=== PATIENT | male | born 1965 | race Caucasian/White ===

== ENCOUNTER 2016-12-27 12:35 | Observation (INO) | payer OTHER ==
--- NOTE | 2016-12-27 12:45 | ED ---
General Adult HPI - General Chief complaint: Chest Pain Stated complaint: Chest Pain Time Seen by Provider: 12/27/16 12:44 Source: patient, RN notes reviewed, old records reviewed Mode of arrival: wheelchair - History of Present Illness Initial comments: This is a 51-year-old male the ER for reevaluation chest pain. Patient has no history of chest pain or cardiac disease. Patient is a smoker. - Related Data Home Medications Medication Instructions Recorded Confirmed Minocycline HCl [Minocin] 50 mg PO Q12H 12/27/16 12/27/16 Multivitamins, Thera [Multivitamin 1 tab PO DAILY 12/27/16 12/27/16 (formulary)] buPROPion HCL [Wellbutrin XL] 150 mg PO DAILY 12/27/16 12/27/16 Allergies Allergy/AdvReac Type Severity Reaction Status Date / Time No Known Allergies Allergy Verified 12/27/16 13:56 Review of Systems ROS Statement: Those systems with pertinent positive or pertinent negative responses have been documented in the HPI. ROS Other: All systems not noted in ROS Statement are negative. Past Medical History Additional Past Medical History / Comment(s): BRAIN ANEURSIM 20 YEARS AGO History of Any Multi-Drug Resistant Organisms: None Reported Additional Past Surgical History / Comment(s): BRAIN SURGERY TO CORRECT ANEURISM Past Psychological History: No Psychological Hx Reported Smoking Status: Current every day smoker Past Alcohol Use History: None Reported Past Drug Use History: Marijuana General Exam General appearance: alert, in no apparent distress Head exam: Present: atraumatic, normocephalic, normal inspection Eye exam: Present: normal appearance, PERRL, EOMI. Absent: scleral icterus, conjunctival injection, periorbital swelling ENT exam: Present: normal exam, mucous membranes moist Neck exam: Present: normal inspection. Absent: tenderness, meningismus, lymphadenopathy Respiratory exam: Present: normal lung sounds bilaterally. Absent: respiratory distress, wheezes, rales, rhonchi, stridor Cardiovascular Exam: Present: regular rate, normal rhythm, normal heart sounds. Absent: systolic murmur, diastolic murmur, rubs, gallop, clicks GI/Abdominal exam: Present: soft, normal bowel sounds. Absent: distended, tenderness, guarding, rebound, rigid Extremities exam: Present: normal inspection, full ROM, normal capillary refill. Absent: tenderness, pedal edema, joint swelling, calf tenderness Back exam: Present: normal inspection Neurological exam: Present: alert, oriented X3, CN II-XII intact Psychiatric exam: Present: normal affect, normal mood Skin exam: Present: warm, dry, intact, normal color. Absent: rash Course Vital Signs 12/27/16 12/27/16 12/27/16 12:39 12:56 13:51 Temperature 97.7 F Pulse Rate 83 86 82 Respiratory 18 18 16 Rate Blood Pressure 127/56 131/64 128/67 O2 Sat by Pulse 98 99 96 Oximetry - Reevaluation(s) Reevaluation #1: 12/27/16 15:06 Patient is remains of right-sided chest pain EKG Findings - EKG Comments: EKG Findings:: EKG shows normal sinus rhythm rate of 81, CA 142, QRS 78, QTC 432 Medical Decision Making - Medical Decision Making 51 male ER for evaluation of chest pain. Anterior chest pain right-sided chest pain rating back. CT negative for PE or aortic disease, congestive family history as well as smoking and cholesterol, patient will be admitted for cardiac observation - Lab Data Result diagrams: 12/27/16 13:05 12/27/16 13:05 Lab Results 12/27/16 12/27/16 12/27/16 Range/Units 13:05 13:05 13:05 WBC 6.6 (3.8-10.6) k/uL RBC 5.42 (4.30-5.90) m/uL Hgb 17.7 H (13.0-17.5) gm/dL Hct 51.6 (39.0-53.0) % MCV 95.2 (80.0-100.0) fL MCH 32.7 (25.0-35.0) pg MCHC 34.4 (31.0-37.0) g/dL RDW 13.2 (11.5-15.5) % Plt Count 181 (150-450) k/uL Neutrophils % 66 % Lymphocytes % 22 % Monocytes % 6 % Eosinophils % 5 % Basophils % 0 % Neutrophils # 4.4 (1.3-7.7) k/uL Lymphocytes # 1.5 (1.0-4.8) k/uL Monocytes # 0.4 (0-1.0) k/uL Eosinophils # 0.3 (0-0.7) k/uL Basophils # 0.0 (0-0.2) k/uL PT (9.0-12.0) sec INR (<1.1) APTT (22.0-30.0) sec D-Dimer (<0.60) mg/L FEU Sodium 140 (137-145) mmol/L Potassium 4.0 (3.5-5.1) mmol/L Chloride 108 H (98-107) mmol/L Carbon Dioxide 24 (22-30) mmol/L Anion Gap 8 mmol/L BUN 22 H (9-20) mg/dL Creatinine 1.01 (0.66-1.25) mg/dL Est GFR (MDRD) Af Amer >60 (>60 ml/min/1.73 sqM) Est GFR (MDRD) Non-Af >60 (>60 ml/min/1.73 sqM) Glucose 160 H (74-99) mg/dL Calcium 9.4 (8.4-10.2) mg/dL Magnesium 2.1 (1.6-2.3) mg/dL Total Bilirubin 1.2 (0.2-1.3) mg/dL AST 38 (17-59) U/L ALT 52 (21-72) U/L Alkaline Phosphatase 64 (38-126) U/L Total Creatine Kinase 356 H (55-170) U/L CK-MB (CK-2) 2.6 H* (0.0-2.4) ng/mL CK-MB (CK-2) Rel Index 0.7 Troponin I <0.012 (0.000-0.034) ng/mL Total Protein 7.0 (6.3-8.2) g/dL Albumin 4.3 (3.5-5.0) g/dL Lipase 38 (23-300) U/L 12/27/16 12/27/16 Range/Units 13:05 13:05 WBC (3.8-10.6) k/uL RBC (4.30-5.90) m/uL Hgb (13.0-17.5) gm/dL Hct (39.0-53.0) % MCV (80.0-100.0) fL MCH (25.0-35.0) pg MCHC (31.0-37.0) g/dL RDW (11.5-15.5) % Plt Count (150-450) k/uL Neutrophils % % Lymphocytes % % Monocytes % % Eosinophils % % Basophils % % Neutrophils # (1.3-7.7) k/uL Lymphocytes # (1.0-4.8) k/uL Monocytes # (0-1.0) k/uL Eosinophils # (0-0.7) k/uL Basophils # (0-0.2) k/uL PT 11.4 (9.0-12.0) sec INR 1.1 (<1.1) APTT 26.0 (22.0-30.0) sec D-Dimer 0.20 (<0.60) mg/L FEU Sodium (137-145) mmol/L Potassium (3.5-5.1) mmol/L Chloride (98-107) mmol/L Carbon Dioxide (22-30) mmol/L Anion Gap mmol/L BUN (9-20) mg/dL Creatinine (0.66-1.25) mg/dL Est GFR (MDRD) Af Amer (>60 ml/min/1.73 sqM) Est GFR (MDRD) Non-Af (>60 ml/min/1.73 sqM) Glucose (74-99) mg/dL Calcium (8.4-10.2) mg/dL Magnesium (1.6-2.3) mg/dL Total Bilirubin (0.2-1.3) mg/dL AST (17-59) U/L ALT (21-72) U/L Alkaline Phosphatase (38-126) U/L Total Creatine Kinase (55-170) U/L CK-MB (CK-2) (0.0-2.4) ng/mL CK-MB (CK-2) Rel Index Troponin I (0.000-0.034) ng/mL Total Protein (6.3-8.2) g/dL Albumin (3.5-5.0) g/dL Lipase (23-300) U/L - Radiology Data Radiology results: report reviewed (Chest x-ray CT chest negative for PE), image reviewed Critical Care Time Critical Care Time: Yes Total Critical Care Time: 31 Disposition Clinical Impression: Chest pain Disposition: ADMITTED IP TO THIS [facility] Condition: Undetermined Instructions: Chest Pain (ED) Referrals: Rowena Bryant MD [Primary Care Provider] - 1-2 days
[2016-12-27 13:24] LABS: Basophils % (A) 0 %; CH 33.7; CHCM 35.5; Eosinophils # (A) 0.3 k/uL (0-0.7); Eosinophils % (A) 5 %; HCT 51.6 % (39.0-53.0); HDW 2.68; HGB 17.7 gm/dL (13.0-17.5); Luc # (Auto) 0.11; Luc % (Auto) 2; Lymphocytes # (A) 1.5 k/uL (1.0-4.8); Lymphocytes % (A) 22 %; MCH 32.7 pg (25.0-35.0); MCHC 34.4 g/dL (31.0-37.0); MCV 95.2 fL (80.0-100.0); Mean Platelet Volume 7.2; Monocytes # (A) 0.4 k/uL (0-1.0); Monocytes % (A) 6 %; Neutrophils # (A) 4.4 k/uL (1.3-7.7); Neutrophils % (A) 66 %; RBC 5.42 m/uL (4.30-5.90); RDW 13.2 % (11.5-15.5); WBC 6.6 k/uL (3.8-10.6); WBC (Perox) 6.96
[2016-12-27 13:30] LABS: ALT 52 U/L (21-72); AST 38 U/L (17-59); Alkaline Phosphatase 64 U/L (38-126); Anion Gap 8 mmol/L; Blood Urea Nitrogen 22 mg/dL (9-20); Calcium 9.4 mg/dL (8.4-10.2); Carbon Dioxide 24 mmol/L (22-30); Chloride 108 mmol/L (98-107); Glucose 160 mg/dL (74-99); Magnesium 2.1 mg/dL (1.6-2.3); Non-African American GFR(MDRD) >60 (>60 ml/min/1.73 sqM); Sodium 140 mmol/L (137-145); Total Bilirubin 1.2 mg/dL (0.2-1.3)
[2016-12-27 13:31] LABS: INR 1.1 (<1.1); Prothrombin Time 11.4 sec (9.0-12.0)
--- NOTE | 2016-12-27 13:36 | XR ---
EXAMINATION TYPE: XR chest 2V DATE OF EXAM: 12/27/2016 1:24 PM COMPARISON: NONE TECHNIQUE: PA and lateral views submitted. HISTORY: Chest pain FINDINGS: The lungs are clear and there is no pneumothorax, pleural effusion, or focal pneumonia. Hypertrophi c change of the spine. No overt failure or pneumothorax. IMPRESSION: 1. No acute process.
[2016-12-27 13:44] LABS: Creatine Kinase 356 U/L (55-170)
[2016-12-27 13:57] LABS: Creatine Kinase MB 2.6 ng/mL (0.0-2.4); Troponin I <0.012 ng/mL (0.000-0.034)
[2016-12-27] MEDS ORDERED: RX INFO: IV CONTRAST WAS GIVEN 1 EACH MISC MISCELLANE PRN (14:04)
--- NOTE | 2016-12-27 14:48 | CT ---
EXAMINATION TYPE: CT angio chest DATE OF EXAM: 12/27/2016 2:42 PM COMPARISON: NONE HISTORY: chest pain X 1 week, hx of brain aneurysm years ago CT DLP: 564.7 mGycm. Automated Exposure Control for Dose Reduction was Utilized. CONTRAST: CTA scan of the thorax is performed with IV Contrast, patient injected with 75cc mL of Omnipaque 350, pulmonary embolism protocol. MIP Images are created on CT scanner and reviewed. FINDINGS: LUNGS: Mild underlying emphysematous change is present. There is linear atelectasis or scarring poste riorly in both lung bases. There is no concerning noncalcified parenchymal nodule or mass. There is 6 x 2 mm calcified nodule laterally left lower lung on axial image 94. No pleural effusion or pneumoth orax is seen bilaterally. MEDIASTINUM: There is satisfactory enhancement of the pulmonary artery and its branches, there is no CT evidence for pulmonary embolism. There are no greater than 1 cm hilar or mediastinal lymph nodes. No cardiomegaly or pericardial effusion is seen. Main pulmonary artery measures 3.0 cm diameter on axial image 69. Adjacent ascending aorta measures 3.3 cm in diameter. OTHER: Juxtarenal IVC filter is partially imaged. Liver is low dense consistent with diffuse fatty in filtration. IMPRESSION: 1. No CT evidence for pulmonary embolism. 2. Mild emphysematous change without acute pulmonary process.
[2016-12-27] MEDS ORDERED: HEPARIN SODIUM,PORCINE 5,000 UNIT/ML 1 ML VIAL IV ONE (15:04)
[2016-12-27] MEDS ORDERED: NITROGLYCERIN SL TABS 0.4 MG TAB SUBLINGUAL PRN (15:04)
[2016-12-27] MEDS ORDERED: HEPARIN SODIUM,PORCINE 5,000 UNIT/ML 1 ML VIAL IV PRN (15:04)
[2016-12-27] MEDS ORDERED: ASPIRIN 81 MG CHEW PO STA (15:04)
[2016-12-27] MEDS ORDERED: HEPARIN SODIUM,PORCINE/D5W PMX 25,000 UNIT in DEXTROSE/WATER 1 500ML.BAG IV SCH (15:15)
[2016-12-27] MEDS: SODIUM CHLORIDE 0.9% 1,000 ML IV SCH (15:30)
--- NOTE | 2016-12-27 20:32 | CONS ---
DATE OF CONSULTATION: Maximino Lobo is a 51-year-old male patient who presented with right-sided chest discomfort which is a sharp pain in the right side. This pain is constant and has been there for about 4 days but it gets worse periodically when he moves his arm in a particular direction. He had slight chest wall tenderness over the ribs but with certain normal movements, I would reduce the pain. There is no back pain and no tender spots in his back. He underwent a CT of the chest, which did not show any pulmonary embolism. The d-dimer are normal. He denies any hypertension, diabetes, he states his lipid panel is within normal limits but I do not have one with me at this time and I will order a lipid panel. SOCIAL HISTORY: He continues to smoke 1 pack of cigarettes a day. ALLERGIES: No known drug allergies. MEDICATIONS: 1. Minocycline. 2. Multivitamins. 3. Wellbutrin. PAST MEDICAL HISTORY: He has had a brain aneurysms surgery 20 years back. In the past he used to use marijuana. REVIEW OF SYSTEMS: No fever, chills, rigors. No cough or expectoration. No nausea, vomiting or diarrhea. No hematuria, dysuria. No strokes or seizures. No skin lesions or musculoskeletal complaints. On examination, his blood pressure is 113/76 mm of mercury, respirations are normal, temperature is normal 97.7 degrees Fahrenheit. Head and neck examination is normal. No JVD, thyromegaly, or carotid bruits. Heart sounds S1, S2 are normal. No murmurs or gallops. LUNGS: Clear to auscultation. EXTREMITIES: Warm. No edema. IMPRESSION: Atypical chest discomfort for 4 days. LABS: Reviewed. White count is normal. Hemoglobin is 17.7. Electrolytes are normal. Glucose 160. Total CPK is 356, MB 2.6. Troponin is normal. Lipase is normal. Kidney function is normal. IMPRESSION: 1. A 51-year-old male patient of Dr. Auguste who presents with atypical chest discomfort. 2. Current smoker 1 pack of cigarettes a day. 3. Elevated glucose level, hemoglobin A1c pending. 4. Lipid panel pending. 5. Elevated CPK but normal Troponins, and normal CT, no evidence for pulmonary embolism. His EKG is normal. First EKG is normal. 6. Chronic obstructive pulmonary disease. CT of his chest showed emphysema with scarring in both bases. A calcified nodule is noted in the left lower lung. Suggest: Three sets of cardiac enzymes and repeat EKG tomorrow. If enzymes are normal, heparin and nitro paste will be discontinued.
[2016-12-27 21:16] LABS: Creatine Kinase 287 U/L (55-170)
[2016-12-27 21:29] LABS: Creatine Kinase MB 1.8 ng/mL (0.0-2.4); Troponin I <0.012 ng/mL (0.000-0.034)
[2016-12-27] MEDS: MINOCYCLINE 50 MG CAP PO SCH (23:43)
[2016-12-28 02:48] LABS: Mean Platelet Volume 7.4
[2016-12-28 03:00] LABS: Cholesterol 144 mg/dL (<200); HDL Cholesterol 35 mg/dL (40-60); Triglycerides 184 mg/dL (<150)
[2016-12-28 05:26] LABS: Troponin I <0.012 ng/mL (0.000-0.034)
[2016-12-28 05:32] LABS: Creatine Kinase 249 U/L (55-170)
[2016-12-28] MEDS: SODIUM CHLORIDE 0.9% 1,000 ML IV SCH (06:22)
[2016-12-28] MEDS ORDERED: buPROPion XL 150 MG TAB.ER.24H PO SCH (09:00)
[2016-12-28] MEDS ORDERED: ATORVASTATIN 80 MG TAB PO SCH (09:00)
[2016-12-28] MEDS ORDERED: ASPIRIN 325 MG TAB PO SCH (09:00)
[2016-12-28 09:14] VITALS: BP 129/74; PULSE 79; RESP 18; TEMP 97.9
[2016-12-28] MEDS: MINOCYCLINE 50 MG CAP PO SCH (09:47)
[2016-12-28] MEDS ORDERED: MULTIVITAMINS, THERA 1 EACH TAB PO SCH (12:00)
--- NOTE | 2016-12-28 12:16 | P.HPIM ---
History of Present Illness Patient left the hospital AGAINST MEDICAL ADVICE prior to my evaluation Past Medical History Past Medical History: Memory Impairment, Sleep Apnea/CPAP/BIPAP Additional Past Medical History / Comment(s): BRAIN ANEURYSM 1998, USES A CPAP MACHINE, PAST SEIZURES ATER BRAIN SX PT STATED NONE IN 14 YEARS.SHORT TERM MEMORY PROBLEMS. History of Any Multi-Drug Resistant Organisms: None Reported Additional Past Surgical History / Comment(s): BRAIN SURGERY TO CORRECT ANEURISM , COLONOSCOPY Past Anesthesia/Blood Transfusion Reactions: No Reported Reaction Past Psychological History: No Psychological Hx Reported Additional Psychological History / Comment(s): PT LIVES BY HIMDELF. DOES'NT DRIVE, RIDES A BIKE OR GETS A RIDE FROM BROTHER. INDEPENDNT WHEN UP. HAS A CPAP MACHINE AT HOME. Smoking Status: Current every day smoker Past Alcohol Use History: None Reported Additional Past Alcohol Use History / Comment(s): >30 YEARS 1PPD Past Drug Use History: Marijuana - Past Family History Father Family Medical History: Unable to Obtain Mother Family Medical History: Unable to Obtain Medications and Allergies Home Medications Medication Instructions Recorded Confirmed Type Minocycline HCl [Minocin] 50 mg PO Q12H 12/27/16 12/27/16 History Multivitamins, Thera [Multivitamin 1 tab PO DAILY 12/27/16 12/27/16 History (formulary)] buPROPion HCL [Wellbutrin XL] 150 mg PO DAILY 12/27/16 12/27/16 History Allergies Allergy/AdvReac Type Severity Reaction Status Date / Time No Known Allergies Allergy Verified 12/27/16 13:56 Physical Exam Vitals: Vital Signs Temp Pulse Pulse Resp BP BP BP 12/28/16 08:00 97.9 F 79 18 129/74 12/28/16 04:00 97.6 F 82 16 105/82 12/27/16 23:49 97.9 F 84 18 117/78 12/27/16 19:33 98.1 F 74 16 126/69 12/27/16 16:25 12/27/16 16:00 97.7 F 75 18 130/76 12/27/16 15:46 97.0 F L 77 18 111/72 12/27/16 13:51 82 16 128/67 12/27/16 12:56 86 18 131/64 12/27/16 12:39 97.7 F 83 18 127/56 Pulse Ox 05/16/17 08:00 95 12/28/16 04:00 97 12/27/16 23:49 96 12/27/16 19:33 99 12/27/16 16:25 98 12/27/16 16:00 98 12/27/16 15:46 98 12/27/16 13:51 96 12/27/16 12:56 99 12/27/16 12:39 98 Intake and Output 12/27/16 12/28/16 12/28/16 22:59 06:59 14:59 Intake Total 240 Balance 240 Intake: Oral 240 Other: Voiding Method Toilet Toilet Toilet Weight 113.2 kg Results CBC & Chem 7: 12/28/16 02:23 12/27/16 13:05 Labs: Abnormal Lab Results - Last 24 Hours (Table) 12/27/16 12/27/16 12/27/16 Range/Units 13:05 13:05 13:05 Hgb 17.7 H (13.0-17.5) gm/dL Chloride 108 H (98-107) mmol/L BUN 22 H (9-20) mg/dL Glucose 160 H (74-99) mg/dL Total Creatine Kinase 356 H (55-170) U/L CK-MB (CK-2) 2.6 H* (0.0-2.4) ng/mL Triglycerides (<150) mg/dL HDL Cholesterol (40-60) mg/dL 12/27/16 12/28/16 12/28/16 Range/Units 20:14 02:23 02:23 Hgb (13.0-17.5) gm/dL Chloride (98-107) mmol/L BUN (9-20) mg/dL Glucose (74-99) mg/dL Total Creatine Kinase 287 H 249 H (55-170) U/L CK-MB (CK-2) (0.0-2.4) ng/mL Triglycerides 184 H (<150) mg/dL HDL Cholesterol 35 L (40-60) mg/dL Thrombosis Risk Factor Assmnt - Choose All That Apply Any of the Below Risk Factors Present?: Yes Each Factor Represents 1 point: Age 41-60 years, Obesity (BMI >25) Other Risk Factors: No Other congenital or acquired thrombophilia - If yes, enter type in comment: No Thrombosis Risk Factor Assessment Total Risk Factor Score: 2 Thrombosis Risk Factor Assessment Level: Low Risk Assessment and Plan Plan: Patient left the hospital AGAINST MEDICAL ADVICE prior to my evaluation
--- NOTE | 2016-12-28 12:17 | P.DS ---
Providers Date of admission: 12/27/16 15:04 Attending physician: Immanuel Arita Consults: 12/27/16 15:04 Consult Physician Urgent Consulting Provider: Padmaja Ivy Consult Reason/Comments: cp Do you want consulting provider notified?: Yes Primary care physician: Rowena Bryant Hospital Course: Patient left the hospital AGAINST MEDICAL ADVICE prior to my evaluation Patient Condition at Discharge: Undetermined Plan - Discharge Summary Discharge Medication List Minocycline HCl [Minocin] 50 mg PO Q12H 12/27/16 [History] Multivitamins, Thera [Multivitamin (formulary)] 1 tab PO DAILY 12/27/16 [History ] buPROPion HCL [Wellbutrin XL] 150 mg PO DAILY 12/27/16 [History] Follow up Appointment(s)/Referral(s): Rowena Bryant MD [Primary Care Provider] - 1-2 days Patient Instructions/Handouts: Chest Pain (ED) Discharge Disposition: Left Against Medical Advice
== END 2016-12-28 09:27 | disposition left against medical advice (07) ==
LOC: EC 12:35 → 3OBS 15:04
PROVIDERS: ADMIT Internal Medicine; ATTEND Internal Medicine
DX: R07.89 Other chest pain (principal); F17.210 Nicotine dependence, cigarettes, uncomplicated; R73.01 Impaired fasting glucose; R74.8 Abnormal levels of other serum enzymes; J44.9 Chronic obstructive pulmonary disease, unspecified; Z79.899 Other long term (current) drug therapy; Z79.2 Long term (current) use of antibiotics; G47.30 Sleep apnea, unspecified; Z99.89 Dependence on other enabling machines and devices; R41.3 Other amnesia
CPT/HCPCS: 96365; 96366 ×2; 96376; 99291; 36415; 93005; 85379; 80061; 80053; 82550 ×2; 82553 ×2; 83690; 83735; 84484 ×2; 85025; 85049; 85610; 85730 ×2; 71020; 71275; G0378 ×2; J1644 ×2; Q9967

== ENCOUNTER 2018-10-30 08:33 | Day surgery (SDC) | payer OTHER ==
[2018-10-27 09:03] VITALS: BMI 40.3
[~2018-10-30 08:33] MED LIST: HEPARIN SODIUM,PORCINE 5,000 UNIT/ML 1 ML VIAL SQ ONE; HYDROmorphone 0.5 MG/0.5 ML SYRINGE IVP PRN; LACTATED RINGERS 1,000 ML IV SCH; MORPHINE SULFATE 4 MG/ML SYRINGE IV PRN; Pre Op ABX Message 1 EACH MISC MISCELLANE ONE
[2018-10-30] MEDS ORDERED: LIDOCAINE 1% 20 ML VIAL (10MG/ML) FOR IV START INTRADERMA ONE (09:56)
[2018-10-30] MEDS ORDERED: DEXAMETHASONE SOD PHOS (MDV) 100 MG/10 ML VIAL IVP ONE (09:58)
[2018-10-30] MEDS ORDERED: ONDANSETRON 4 MG/2 ML VIAL IVP ONE (09:58)
--- NOTE | 2018-10-30 10:11 | P.GSHP ---
History of Present Illness H&P Date: 10/30/18 Chief Complaint: Skin lesion on scrotum This is a 53-year-old male who has developed a chronically inflamed skin lesion on his scrotum. He presents today for excision. Past Medical History Past Medical History: Memory Impairment, Sleep Apnea/CPAP/BIPAP Additional Past Medical History / Comment(s): BRAIN ANEURYSM 1998, USES A CPAP MACHINE, PAST SEIZURES ATER BRAIN SX PT STATED NONE IN 14 YEARS.SHORT TERM ME ALEXANDRU PROBLEMS. History of Any Multi-Drug Resistant Organisms: None Reported Additional Past Surgical History / Comment(s): BRAIN SURGERY TO CORRECT AN EURISM, COLONOSCOPY Past Anesthesia/Blood Transfusion Reactions: No Reported Reaction Smoking Status: Current every day smoker - Past Family History Father Family Medical History: Unable to Obtain Mother Family Medical History: Unable to Obtain Medications and Allergies Home Medications Medication Instructions Recorded Confirmed Type Minocycline HCl [Minocin] 50 mg PO Q12H 12/27/16 10/30/18 History Multivitamins, Thera [Multivitamin 1 tab PO DAILY 10/27/18 10/27/18 History (formulary)] [place]-3 Fatty Acids/Fish Oil [Fish 1 each PO DAILY 10/27/18 10/27/18 History Oil 1,000 mg Softgel] Allergies Allergy/AdvReac Type Severity Reaction Status Date / Time No Known Allergies Allergy Verified 10/27/18 08:58 Surgical - Exam Vital Signs Temp Pulse Resp BP Pulse Ox 98.2 F 85 18 118/71 97 10/30/18 09:45 10/30/18 09:45 10/30/18 09:45 10/30/18 09:45 10/30/18 09:45 - General well developed, well nourished, no distress - Eyes PERRL - ENT normal pinna - Neck no masses - Respiratory normal expansion - Cardiovascular Rhythm: regular - Abdomen Abdomen: soft, non tender - Integumentary 5 cm chronically inflamed skin lesion of the posterior scrotum. Assessment and Plan Assessment: Chronically inflamed posterior scrotum skin lesion. We'll perform excision.
[2018-10-30] MEDS ORDERED: HYDROmorphone (PF) 1 MG/ML ONE (10:28)
[2018-10-30] MEDS ORDERED: diphenhydrAMINE 50 MG/ML 1 ML VIAL ONE (10:28)
[2018-10-30] MEDS ORDERED: fentaNYL (PF) 50 MCG/ML 2 ML AMP ONE (10:28)
[2018-10-30] MEDS ORDERED: PROPOFOL 10 MG/ML 20 ML VIAL IV ONE (10:28)
[2018-10-30] MEDS ORDERED: ROCURONIUM BROMIDE 10 MG/ML 10 ML VIAL IV ONE (10:28)
[2018-10-30] MEDS ORDERED: KETOROLAC 30 MG/ML 1 ML VIAL ONE (10:28)
[2018-10-30] MEDS ORDERED: LIDOCAINE 1% INJ 10MG/ML (20 ML MDV) ONE (10:28)
[2018-10-30] MEDS ORDERED: MIDAZOLAM 2 MG/2 ML VIAL ONE (10:28)
[2018-10-30] MEDS ORDERED: SUCCINYLCHOLINE CHLORIDE 100 MG/5 ML SYR IV ONE (10:28)
[2018-10-30] MEDS ORDERED: ceFAZolin 1,000 MG VIAL IVPB ONE (10:53)
[2018-10-30] MEDS ORDERED: LACTATED RINGERS 1,000 ML IV ONE (10:57)
[2018-10-30 11:26] VITALS: TEMP 98.6
--- NOTE | 2018-10-30 12:06 | P.OP ---
Date of Procedure: 10/30/18 Preoperative Diagnosis: Chronically inflamed scrotal skin lesion Postoperative Diagnosis: Chronically inflamed scrotal skin lesion Procedure(s) Performed: Excision of chronically inflamed scrotal skin lesion Anesthesia: EDUARDO Surgeon: Gee Huang Estimated Blood Loss (ml): 10 Pathology: other (4 cm scrotal skin lesion) Condition: stable Disposition: PACU Description of Procedure: The patient's placed on the operative table in supine position. He received general anesthesia. His scrotum was prepped and draped usual sterile fashion. The patient had a 4 x 2 cm chronically inflamed scrotal skin lesion on the posterior wall the scrotum. Using a 15 blade the skin was incised and then using electrocautery the skin lesion was dissected free from the scrotum. The wound significant disease. Scope was then closed with interrupted 3-0 Monocryl suture. Dermabond was applied. Patient top she will was sent to recovery in stable condition.
[2018-10-30 12:23] VITALS: RESP 16
[2018-10-30 13:01] VITALS: BP 121/79; PULSE 83
== END 2018-10-30 13:15 | disposition home or self-care (01) ==
LOC: OR 08:33
PROVIDERS: ATTEND Surgery
DX: L72.0 Epidermal cyst (principal); F17.200 Nicotine dependence, unspecified, uncomplicated; G47.30 Sleep apnea, unspecified; Z99.89 Dependence on other enabling machines and devices; Z79.899 Other long term (current) drug therapy; R41.3 Other amnesia
CPT/HCPCS: 88304; 11426; J2250; J1200; J1644; J2405; J0690; J2001; J3010; J1885; J1170; J1100; J0330; J2704

== ENCOUNTER → 2018-12-19 | Outpatient (CLI) | payer OTHER ==
--- NOTE | 2018-12-19 19:43 | PN ---
PROGRESS NOTE Maximion is 53, coming to see me for a followup. The patient is known to have obstructive sleep apnea treated many years back. The patient has got a new Resmet CPAP unit and the patient is coming to see me for a compliancy check. This was offered to him through his primary care physician. This is a regular CPAP unit which does not have any automatic capacity. The patient has been utilizing his CPAP. However, at times this machine has been quitting on him. It is very much likely the patient is leaking excessively around the mask and for that reason, he is having these episodic machine failures. I checked his compliance data. Based on the recorded data, the patient has been utilizing his machine every night. He has been averaging around 8.3 hours of CPAP use per night with a leak factor of 83 L per minute. His AHI is down to 0.1 while on treatment. He is using a Mirage Quattro full-face mask, older generation. He states that he is not snoring while on treatment. He is not waking up for any choking or gasping sensation. He goes to bed around 11 p.m., wakes up 7:00 am in the morning and he keeps a regular schedule. No naps during the day. He prefers to sleep on his side. He claims that the treatment is helping him with his symptoms of obstructive sleep apnea with the exception of the leaks and the occasionally machine failure as reported. REVIEW OF SYSTEMS: Fourteen-point review of system was done. Positive findings are mentioned above in the history of present illness. No insomnia. No nocturia. No grinding of the teeth. No sleepwalking or dry mouth. No anxiety or panic attacks. No palpitations. No heartburn. No restlessness in lower extremities. No sleepwalking or sleep talking. No anxiety. No claustrophobia. No sexual dysfunction. No depression. No history of any memory or concentration. PHYSICAL EXAMINATION: BP is 137/87, pulse 104, respirations 18, temperature 97.4, saturation 95% on room air. Height is 5 feet 7 inches, weight is 264. GENERAL APPEARANCE: Calm, comfortable. Head is atraumatic, normocephalic. NECK: Supple. Mallampati class 4. There is no goiter or neck masses. LUNGS: Clear to auscultation. HEART: Sounds regular rate and rhythm. Normal S1, S2. No S3. No murmurs. ABDOMEN: Soft, nontender. No organomegaly. EXTREMITIES: No edema. No cyanosis or clubbing. NEUROLOGIC: Alert and oriented x3. No focal neurological deficits. IMPRESSION: 1. Obstructive sleep apnea currently on CPAP with at a pressure of 15 cm of water. The patient is coming in for a compliancy check as the patient has obtained a new CPAP unit. 2. Excessive mask leaks around the Mirage Quattro full face mask. 3. Occasional machine failure. PLAN: I think the machine is quitting because of excessive leaks. I will eliminate the Smart start feature. I offered him an AirFit F20 full face mask and the pressure will be kept with a pressure of 15 cm of water. The patient will be encouraged to continue using the CPAP and see me back in 4-6 weeks' time for re-evaluation. We will make further adjustments based on his overall clinical response and compliance. MMKELLYL / ALEJANDRON: [id number] /
== END ==
LOC: SLEEP 15:27
PROVIDERS: ATTEND Internal Medicine Critical Care Medicine
DX: G47.33 Obstructive sleep apnea (adult) (pediatric) (principal); Z99.89 Dependence on other enabling machines and devices
CPT/HCPCS: 99211

== ENCOUNTER → 2019-01-30 | Outpatient (CLI) | payer OTHER ==
--- NOTE | 2019-01-30 16:55 | PN ---
PROGRESS NOTE 53-year-old male patient coming in for sleep apnea evaluation. During his last visit, I gave the patient an AirFit F20 full face mask, medium size and this is supposed to improve his compliance and tolerability. He is on CPAP pressure of 15. Overall he is doing better. His compliance data reflects that. The patient has been averaging 8.3 hours of CPAP use per night. Leak is 7 L/minute. AHI is down to 0.3. Overall he is feeling better. He is benefitting from treatment. He is awake and refreshed and alert during the day and he has no specific complaints. REVIEW OF SYSTEMS: Fourteen-point review of system was done. Hypersomnia and sleepiness were recovered and the patient's Moosic score was down to 1. No episodes of falling asleep while driving or performing routine day-to-day activities. No other complaints otherwise. PHYSICAL EXAMINATION: BP is 109/70, pulse 102, respirations 16, temperature 98.1. Saturation 96% on room air. Height 5 feet 7 inches, weight is 265. BMI is 41. GENERAL APPEARANCE: Calm, comfortable. Head is atraumatic, normocephalic. NECK: Supple. No JVD. No goiter. No neck masses. LUNGS: Diminished. Otherwise clear. HEART: Sounds regular rate and rhythm. Normal S1, S2. No murmurs. ABDOMEN: Soft, nontender. No organomegaly. EXTREMITIES: No edema. No cyanosis or clubbing. NEUROLOGICALLY: She is alert and oriented x3. There is no focal neurological deficits. PSYCHIATRICALLY: Negative for anxiety or depression. IMPRESSION: 1. Symptomatic obstructive sleep apnea currently on CPAP pressure of 15 cm of water. 2. Hypersomnia, improved, Moosic score is down to 1. 3. Obesity, BMI of 41. PLAN: 1. Weight loss. 2. Continue CPAP therapy. The CPAP pressure will be lowered down to 14. 3. Refill the patient's AirFit F20 full face mask. 4. See me back in a year's time in follow up. 5. Treatment is successful for now. MMODL / IJN: [id number] /
== END | disposition home or self-care (01) ==
LOC: SLEEP 15:32
PROVIDERS: ATTEND Internal Medicine Critical Care Medicine
DX: G47.33 Obstructive sleep apnea (adult) (pediatric) (principal); E66.9 Obesity, unspecified; Z68.41 Body mass index [BMI] 40.0-44.9, adult; Z99.89 Dependence on other enabling machines and devices

== ENCOUNTER 2020-02-12 13:40 | Emergency (ER) | payer OTHER ==
[2020-02-12 13:44] VITALS: RESP 18; TEMP 98.2
[2020-02-12] MEDS ORDERED: LIDOCAINE 1% INJ 10MG/ML (20 ML MDV) SQ ONE (13:56)
[2020-02-12] MEDS ORDERED: DIPH,PERTUS(ACELL)TETVAC-LF 0.5 ML VIAL IM ONE (13:56)
--- NOTE | 2020-02-12 14:54 | CT ---
EXAMINATION TYPE: CT cervical spine wo con DATE OF EXAM: 02/12/2020 COMPARISON: None HISTORY: 54-year-old male Fall, neck pain TECHNIQUE: Contiguous axial scanning of the cervical spine without IV contrast. Coronal and sagittal reconstructions performed. CT DLP: 469.2 mGycm Automated exposure control for dose reduction was used. FINDINGS: No greater cervical junction and probably, predental space widening, or prevertebral soft tissue swel ling. Moderate anterior and plate spondylosis mid cervical spine. Alignment is maintained. No acute fracture of the cervical spine. Extensive artifact from the patient's shoulders limits assessment of the spinal canal from C3-C4 and below. Scattered facet and uncovertebral joint arthropathy. Changes result in mild right-sided neural forami nal narrowing at C4-C5 and C5-C6. IMPRESSION: MILD SPONDYLITIC CHANGE MID TO LOWER CERVICAL SPINE. NO ACUTE FRACTURE OR MALALIGNMENT.
--- NOTE | 2020-02-12 14:57 | XR ---
EXAMINATION TYPE: XR lumbar spine 2 or 3V DATE OF EXAM: 02/12/2020 CLINICAL HISTORY: pain TECHNIQUE: Three views of the lumbar spine are submitted. COMPARISON: None. FINDINGS: There are 5 lumbar type vertebral bodies identified. The lumbar spine shows satisfactory alignment w ithout evidence of acute fracture or dislocation. Vertebral body heights are within normal limits. Mild degenerative disc space narrowing noted with mild spondylosis. The overlying soft tissue appear s unremarkable. IMPRESSION: No acute fracture or dislocation is seen in the lumbar spine. ICD 10 NO FRACTURE, INITIAL EVALUATION
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
[2020-02-12 16:33] VITALS: BP 142/78; PULSE 95
== END 2020-02-12 16:33 | disposition home or self-care (01) ==
LOC: EC 13:40
DX: S11.91XA Laceration without foreign body of unspecified part of neck, initial encounter (principal); M54.5 Low back pain; G47.30 Sleep apnea, unspecified; F17.200 Nicotine dependence, unspecified, uncomplicated; Z23 Encounter for immunization; Z99.89 Dependence on other enabling machines and devices; W18.09XA Striking against other object with subsequent fall, initial encounter
CPT/HCPCS: 72100; 72125; 90715; 99283; 12002; 90471; J2001

== ENCOUNTER → 2021-03-06 | Day surgery (SDC) | payer OTHER ==
[2021-03-04 13:38] VITALS: BMI 38.0
[~2021-03-06] MED LIST changes: -HEPARIN SODIUM,PORCINE 5,000 UNIT/ML 1 ML VIAL SQ ONE; -HYDROmorphone 0.5 MG/0.5 ML SYRINGE IVP PRN; +LACTATED RINGERS 1,000 ML IV ONE; +MIDAZOLAM 2 MG/2 ML VIAL ONE; -MORPHINE SULFATE 4 MG/ML SYRINGE IV PRN; +PROPOFOL 10 MG/ML 20 ML VIAL IV ONE; -Pre Op ABX Message 1 EACH MISC MISCELLANE ONE; +fentaNYL (PF) 50 MCG/ML 2 ML AMP ONE
[2021-03-06 07:35] VITALS: TEMP 97.8
[2021-03-06 07:44] LABS: Glucose,Whole Blood 148 mg/dL (75-99)
--- NOTE | 2021-03-06 08:50 | P.PCN ---
Date of Procedure: 03/06/21 Procedure(s) Performed: BRIEF HISTORY: Patient is a 55-year-old pleasant male scheduled for an elective colonoscopy as a part of evaluation of prior history of colon polyps. His last coloscopy was [address] Pozo. PROCEDURE PERFORMED: Colonoscopy with biopsy. PREOPERATIVE DIAGNOSIS: History of colon polyps. IV sedation per Anesthesia. PROCEDURE: After informed consent was obtained, the patient, was brought into the endoscopy unit. IV sedation was administered by Anesthesia under continuous monitoring. Digital rectal examination was normal. Initially the Olympus CF-160 flexible video colonoscope was then inserted in the rectum, gradually advanced into the cecum without any difficulty. Careful examination was performed as the scope was gradually being withdrawn. Ileocecal valve and the appendiceal orifice were visualized and appeared normal. Prep was excellent. Mucosa of the cecum, ascending colon appeared normal. In the transverse colon there was a 3-4 mm flat polyp that was removed by cold biopsy. Rest of the, transverse colon, descending colon, sigmoid colon, and rectum appeared normal. Retroflexion was performed in the rectum and grade 2 internal hemorrhoids were seen. The patient tolerated the procedure well. IMPRESSION: 3-4 mm flat polyp in the transverse colon status post removal by cold biopsy Rest of the colon appeared normal Small internal hemorrhoids RECOMMENDATIONS: Findings of this examination were discussed with the patient as well as her family. She was advised to follow with the biopsy results and have a repeat surveillance colonoscopy in 5 years from now.
[2021-03-06 09:06] VITALS: BP 138/76; PULSE 79; RESP 17
== END ==
LOC: ORWHC2ENDO 07:03
PROVIDERS: ATTEND Internal Medicine Gastroenterology
DX: Z12.11 Encounter for screening for malignant neoplasm of colon (principal); Z86.010 Personal history of colon polyps; K64.1 Second degree hemorrhoids; D12.3 Benign neoplasm of transverse colon; F17.210 Nicotine dependence, cigarettes, uncomplicated; G47.33 Obstructive sleep apnea (adult) (pediatric); E11.9 Type 2 diabetes mellitus without complications; F32.9 Major depressive disorder, single episode, unspecified; Z79.899 Other long term (current) drug therapy; Z86.79 Personal history of other diseases of the circulatory system
CPT/HCPCS: 88305; 45380; J2250; J3010; J2704